=== PATIENT | male | born 1965 | race Two or more races ===

== ENCOUNTER 2023-08-05 09:38 | Outpatient (CLI) | payer OTHER ==
[~2023-08-05 09:38] MED LIST: GLUCOPHAGE XR500 MG; TRIZIVIR
== END 2023-08-05 09:46 | disposition home or self-care (01) ==
LOC: SONOGRAMA 09:38
DX: M25.561 Pain in right knee (principal)

== ENCOUNTER 2024-02-18 08:40 | Outpatient (CLI) | payer OTHER | END 2024-02-18 08:47 | disposition home or self-care (01) | LOC: NUCLEAR 08:40 | DX: C79.51 Secondary malignant neoplasm of bone (principal) ==

== ENCOUNTER 2024-11-18 07:28 | Outpatient (CLI) | payer OTHER | END 2024-11-18 07:29 | disposition home or self-care (01) | LOC: NUCLEAR 07:28 | PROVIDERS: ATTEND Internal Medicine Hematology & Oncology | DX: C65.2 Malignant neoplasm of left renal pelvis (principal) ==